=== PATIENT | female | born 1960 | race African-American/Black ===

== ENCOUNTER 2016-12-06 17:27 | Emergency (ER) | payer MEDICAID ==
[~2016-12-06] VITALS: Ht 162.6 cm; Wt 80.0 kg
[2016-12-06] MEDS ORDERED: SODIUM CHLORIDE 0.9% 1,000 ML IV ONE (22:46)
[2016-12-06] MEDS ORDERED: ONDANSETRON HCL 4MG/2ML VIAL IV STA (22:46)
[2016-12-06 23:35] LABS: GLUCOSE URINE NEGATIVE (NEGATIVE); KETONES URINE 2+ (NEGATIVE); LEUKOCYTE ESTERASE URINE 1+ (NEGATIVE); NITRITE URINE NEGATIVE (NEGATIVE); OCCULT BLOOD URINE 3+ (NEGATIVE); PROTEIN URINE TRACE (NEGATIVE); SPECIFIC GRAVITY URINE 1.023 (1.005-1.030); UROBILINOGEN URINE 0.2 E.U./dL (0.2-1.0)
[2016-12-06 23:36] LABS: CLARITY URINE CLOUDY (CLEAR); COLOR URINE YELLOW (YELLOW)
[2016-12-06 23:41] LABS: CARBON DIOXIDE 27 mEq/L (21-32); CHLORIDE 99 mEq/L (98-107)
[2016-12-06 23:42] LABS: BASOPHILS % 0.7 % (0.0-2.0); EOSINOPHILS % 0.6 % (0.0-5.0); HEMATOCRIT. 34.3 % (36.0-48.0); HEMOGLOBIN. 11.3 g/dL (12.0-16.0); LYMPHOCYTES % 21.2 % (20.0-50.0); MEAN CORPUSCULAR HEMOGLOBIN 26.9 pg (28.0-32.0); MEAN CORPUSCULAR VOLUME 81.5 fL (81.0-99.0); MEAN PLATELET VOLUME 7.9 fl (7.4-10.4); MONOCYTES % 7.9 % (2.0-8.0); NEUTROPHILS % 69.6 % (40.0-76.0); PLATELET 295 x1000/uL (130-400); RED BLOOD CELL COUNT 4.21 mill/uL (4.2-5.4); RED CELL DISTRIBUTION WIDTH 14.3 % (11.6-14.6)
[2016-12-06] MEDS ORDERED: HYDROCODONE/ACETAMINOPHEN 5/325MG TABLET PO NR (23:46)
[2016-12-07] MEDS ORDERED: CEFTRIAXONE 1 G PREMIX 50 ML IV STA (00:22)
[2016-12-07 01:28] VITALS: BP 105/53
== END 2016-12-07 01:30 | disposition home or self-care (01) ==
LOC: ER 23:22
DX: N39.0 Urinary tract infection, site not specified (principal); D25.9 Leiomyoma of uterus, unspecified; N93.8 Other specified abnormal uterine and vaginal bleeding
CPT/HCPCS: 36415; 76856; 80053; 81001; 81025; 85025; 96361; 96365; 96375; 99285; J0696; J2405; J7030; Z7610

== ENCOUNTER 2017-06-10 14:28 | Emergency (ER) | payer MEDICAID ==
[~2017-06-10] VITALS: Ht 160 cm; Wt 90.0 kg
[2017-06-10] MEDS ORDERED: METOCLOPRAMIDE HCL 10MG/2ML VIAL IV ONE (15:15)
[2017-06-10] MEDS ORDERED: DIPHENHYDRAMINE 50MG/ML VIAL IV ONE (15:15)
[2017-06-10] MEDS ORDERED: SODIUM CHLORIDE 0.9% 1,000 ML IV ONE (15:15)
[2017-06-10 15:25] LABS: BASOPHILS % 0.6 % (0.0-2.0); EOSINOPHILS % 2.6 % (0.0-5.0); HEMATOCRIT. 38.1 % (36.0-48.0); HEMOGLOBIN. 12.5 g/dL (12.0-16.0); LYMPHOCYTES % 15.6 % (20.0-50.0); MEAN CORPUSCULAR HEMOGLOBIN 26.8 pg (28.0-32.0); MEAN PLATELET VOLUME 7.8 fl (7.4-10.4); MONOCYTES % 9.1 % (2.0-8.0); NEUTROPHILS % 72.1 % (40.0-76.0); PLATELET 336 x1000/uL (130-400); RED BLOOD CELL COUNT 4.64 mill/uL (4.2-5.4); RED CELL DISTRIBUTION WIDTH 14.9 % (11.6-14.6)
[2017-06-10 15:35] LABS: CHLORIDE 99 mEq/L (98-107)
[2017-06-10 15:42] LABS: TROPONIN I < 0.02 ng/mL (0.00-0.04)
[2017-06-10 15:58] LABS: HCG SCREEN NEGATIVE
[2017-06-10] MEDS ORDERED: ONDANSETRON HCL 4MG/2ML VIAL IV ONE (18:00)
[2017-06-10] MEDS ORDERED: KETOROLAC 15MG/ML VIAL IV ONE (18:00)
[2017-06-10 18:57] VITALS: BP 114/70
== END 2017-06-10 19:21 | disposition home or self-care (01) ==
LOC: ER 14:34
DX: R55 Syncope and collapse (principal); D72.829 Elevated white blood cell count, unspecified; R51 Headache; R11.0 Nausea; R10.9 Unspecified abdominal pain; I10 Essential (primary) hypertension; H91.90 Unspecified hearing loss, unspecified ear
CPT/HCPCS: 36415; 70450; 71045; 74176; 80053; 83735; 83880; 84484; 84703; 85025; 93005; 96361; 96374; 96375; 99285; J1200; J1885; J2405; J2765; J7030

== ENCOUNTER 2017-07-03 12:58 | Emergency (ER) | payer MEDICAID ==
[~2017-07-03] VITALS: Ht 154.9 cm; Wt 110.0 kg
[2017-07-03 14:25] LABS: CLARITY URINE CLEAR (CLEAR); COLOR URINE YELLOW (YELLOW); KETONES URINE NEGATIVE (NEGATIVE); LEUKOCYTE ESTERASE URINE NEGATIVE (NEGATIVE); NITRITE URINE NEGATIVE (NEGATIVE); OCCULT BLOOD URINE 2+ (NEGATIVE); PROTEIN URINE NEGATIVE (NEGATIVE); SPECIFIC GRAVITY URINE 1.019 (1.005-1.030)
[2017-07-03 14:26] LABS: BASOPHILS % 0.4 % (0.0-2.0); EOSINOPHILS % 1.9 % (0.0-5.0); HEMATOCRIT. 35.5 % (36.0-48.0); HEMOGLOBIN. 11.8 g/dL (12.0-16.0); LYMPHOCYTES % 15.6 % (20.0-50.0); MEAN CORPUSCULAR HEMOGLOBIN 27.3 pg (28.0-32.0); MEAN CORPUSCULAR VOLUME 82.3 fL (81.0-99.0); MONOCYTES % 6.7 % (2.0-8.0); NEUTROPHILS % 75.4 % (40.0-76.0); PLATELET 283 x1000/uL (130-400); RED BLOOD CELL COUNT 4.32 mill/uL (4.2-5.4); RED CELL DISTRIBUTION WIDTH 15.3 % (11.6-14.6)
[2017-07-03 14:31] LABS: PROTHROMBIN TIME 10.7 sec (9.4-11.6)
[2017-07-03 14:32] LABS: HCG SCREEN NEGATIVE
[2017-07-03 14:36] LABS: CHLORIDE 110 mEq/L (98-107)
[2017-07-03] MEDS ORDERED: HYDROCODONE/ACETAMINOPHEN 5/325MG TABLET PO ONE (17:00)
[2017-07-03 17:20] VITALS: BP 140/68
== END 2017-07-03 17:48 | disposition home or self-care (01) ==
LOC: ER 15:47
DX: D25.9 Leiomyoma of uterus, unspecified (principal)
CPT/HCPCS: 36415; 76830; 76856; 80053; 81003; 83690; 84703; 85025; 85610; 99285; Z7610

== ENCOUNTER 2017-07-16 17:21 | Emergency (ER) | payer MEDICAID ==
[~2017-07-16] VITALS: Ht 154.9 cm; Wt 91.2 kg
[2017-07-16] MEDS ORDERED: KETOROLAC 30MG/ML VIAL IM ONE (20:00)
[2017-07-16 20:20] VITALS: BP 144/67
== END 2017-07-16 20:25 | disposition home or self-care (01) ==
LOC: ER 18:48
DX: J02.9 Acute pharyngitis, unspecified (principal); I10 Essential (primary) hypertension
CPT/HCPCS: 96372; 99283; J1885; Z7610

== ENCOUNTER 2019-02-28 12:55 | Emergency (ER) | payer MEDICAID ==
[~2019-02-28] VITALS: Ht 162.6 cm; Wt 90.0 kg
[2019-02-28 16:55] LABS: CLARITY URINE CLEAR (CLEAR); COLOR URINE YELLOW (YELLOW); KETONES URINE NEGATIVE (NEGATIVE); LEUKOCYTE ESTERASE URINE NEGATIVE (NEGATIVE); NITRITE URINE NEGATIVE (NEGATIVE); OCCULT BLOOD URINE 1+ (NEGATIVE); PROTEIN URINE NEGATIVE (NEGATIVE); SPECIFIC GRAVITY URINE 1.018 (1.005-1.030); UROBILINOGEN URINE 0.2 E.U./dL (0.2-1.0)
[2019-02-28] MEDS: HYDROCODONE/ACETAMINOPHEN 5/325MG TABLET PO ONE (17:18)
[2019-02-28] MEDS: KETOROLAC 60MG/2ML VIAL IM ONE (17:41)
[2019-02-28] MEDS: METHOCARBAMOL 750MG TABLET PO SCH (17:46)
[2019-02-28 19:12] VITALS: BP 135/72
== END 2019-02-28 19:12 | disposition home or self-care (01) ==
LOC: ER 12:55
DX: N39.0 Urinary tract infection, site not specified (principal); M54.41 Lumbago with sciatica, right side; I10 Essential (primary) hypertension; Z96.659 Presence of unspecified artificial knee joint; Z98.890 Other specified postprocedural states
CPT/HCPCS: 81003; 82962; 96372; 99283; J1885

== ENCOUNTER 2023-02-11 16:41 | Emergency (ER) | payer MEDICAID ==
[~2023-02-11] VITALS: Ht 160 cm; Wt 91.0 kg
[2023-02-11 17:42] VITALS: BP 131/73; TEMP 98.9; O2SAT 100
[2023-02-11 17:50] VITALS: PULSE 100; RESP 14
[2023-02-11 19:28] LABS: BASOPHILS % 0.6 % (0.0-2.0); EOSINOPHILS % 1.4 % (0.0-5.0); HEMATOCRIT. 39.7 % (36.0-48.0); HEMOGLOBIN. 12.8 g/dL (12.0-16.0); LYMPHOCYTES % 14.1 % (20.0-50.0); MEAN CORPUSCULAR HEMOGLOBIN 28.1 pg (28.0-32.0); MEAN CORPUSCULAR HGB CONC 32.2 g/dL (31.0-37.0); MEAN CORPUSCULAR VOLUME 87.4 fL (81.0-99.0); MEAN PLATELET VOLUME 8.1 fl (7.4-10.4); MONOCYTES % 9.5 % (2.0-8.0); NEUTROPHILS % 74.4 % (40.0-76.0); PLATELET 291 x1000/uL (130-400); RED BLOOD CELL COUNT 4.54 mill/uL (4.2-5.4); RED CELL DISTRIBUTION WIDTH 15.7 % (11.6-14.6); WHITE BLOOD COUNT 10.3 x1000/uL (4.5-11.0)
[2023-02-11 19:40] LABS: CHLORIDE 105 mEq/L (98-107); INDEX HEMOLYSI 1 (1-3); INDEX ICTERIC 1 (1-4); INDEX LIPEMIC 1 (1-3); POTASSIUM 4.1 mEq/L (3.5-5.1); SODIUM 139 mEq/L (136-145)
[2023-02-11 19:53] LABS: ALANINE AMINOTRANSFERASE 17 IU/L (13-61); ALBUMIN 3.7 g/dL (3.4-5.0); ASPARTATE AMINOTRANSFERASE 18 IU/L (15-37); BILIRUBIN TOTAL 0.8 mg/dL (0.1-1.0); CARBON DIOXIDE 31 mEq/L (21-32); CREATININE 1.2 mg/dL (0.6-1.3); GLUCOSE 93 mg/dL (70-105); PROTEIN TOTAL 7.5 g/dL (6.0-8.3); TROPONIN I HIGH SENSITIVITY 10 ng/L (<54); UREA NITROGEN BLOOD 16 mg/dL (7-21)
[2023-02-11 23:43] LABS: CLARITY URINE CLEAR (CLEAR); COLOR URINE YELLOW (YELLOW); GLUCOSE URINE NEGATIVE (NEGATIVE); KETONES URINE NEGATIVE (NEGATIVE); LEUKOCYTE ESTERASE URINE TRACE (NEGATIVE); NITRITE URINE NEGATIVE (NEGATIVE); OCCULT BLOOD URINE 1+ (NEGATIVE); PH URINE 5.5 (4.5-8.0); PROTEIN URINE NEGATIVE (NEGATIVE); SPECIFIC GRAVITY URINE 1.022 (1.005-1.030); UROBILINOGEN URINE 0.2 E.U./dL (0.2-1.0)
[2023-02-11 23:58] LABS: RBC URINE NONE SEEN /hpf (0-2); SQUAMOUS EPITHELIAL CELL URINE RARE /lpf (RARE/1+)
[2023-02-11 23:59] LABS: BACTERIA URINE TRACE
[2023-02-12] MEDS ORDERED: NITR-87 MT ×2 (00:15)
[2023-02-12] MEDS ORDERED: MAG355OR21 MT ×2 (00:15)
[2023-02-12] MEDS ORDERED: METR-167 MT (01:19)
[2023-02-12] MEDS ORDERED: CIPR-263 MT (01:19)
[2023-02-12] MEDS ORDERED: DIF15 MT (01:23)
== END 2023-02-12 08:10 | disposition home or self-care (01) ==
LOC: ER 16:41
DX: R10.31 Right lower quadrant pain (principal); I10 Essential (primary) hypertension; Z98.890 Other specified postprocedural states
CPT/HCPCS: 36415; 74176; 80053; 81003; 84484; 85025; 87210; 93005; 99285